=== PATIENT | male | born 1940 | race Caucasian/White ===

== ENCOUNTER 2017-07-13 11:04 | Outpatient (CLI) | payer MEDICARE, OTHER ==
[2017-07-13 11:51] LABS: BASOPHILS # (AUTO) 0.1 10^3/uL (0.0-0.1); BASOPHILS % (AUTO) 1.2 %; EOSINOPHILS # (AUTO) 0.1 10^3/uL (0.0-0.7); EOSINOPHILS % (AUTO) 1.2 %; HGB - HEMOGLOBIN 13.7 g/dL (14.0-18.0); LYMPHOCYTES # (AUTO) 1.5 10^3/uL (1.5-3.5); LYMPHOCYTES % (AUTO) 14.7 %; MEAN CORPUSCULAR HEMOGLOBIN 31.4 pg (27.0-31.0); MEAN CORPUSCULAR HGB CONC 34.5 g/dL (32.0-36.0); MONOCYTES # (AUTO) 1.7 10^3/uL (0.0-1.0); MONOCYTES % (AUTO) 16.5 %; NEUTROPHILS % (AUTO) 66.4 %; PLT - PLATELET COUNT 183 10^3/uL (130-450); RED BLOOD COUNT 4.36 10^6/uL (4.70-6.10); RED CELL DISTRIBUTION WIDTH 12.9 % (12.0-15.0); WHITE BLOOD COUNT 10.5 x10^3/uL (4.8-10.8)
[2017-07-13 12:03] LABS: RBC MORPHOLOGY (MULTIPLE) 1+ ANISOCYTOSIS (NORMAL)
--- NOTE | 2017-07-13 12:03 | XRAY Report ---
TWO-VIEW CHEST: 07/13/2017 CLINICAL INDICATION: Fever. FINDINGS: Frontal and lateral views of the chest demonstrate a normal cardiac silhouette. The lungs are clear. No effusion or pneumothorax is present. IMPRESSION: NO EVIDENCE OF ACUTE CARDIOPULMONARY DISEASE. TD: 07/13/2017 12:02
== END 2017-07-13 11:05 | disposition home or self-care (01) ==
LOC: DI 11:04
PROVIDERS: ATTEND Internal Medicine
DX: R50.9 Fever, unspecified (principal)
CPT/HCPCS: 36415; 71046; 85025

== ENCOUNTER 2019-09-03 13:01 | Emergency (ER) | payer MEDICARE, OTHER ==
--- NOTE | 2019-09-03 13:57 | ED Physician Documentation ---
PD HPI UPPER EXT INJURY - Stated complaint Stated Complaint: L INDEX FINGER LAC - Chief complaint Chief Complaint: Laceration - History obtained from History obtained from: Patient, Family - History of Present Illness Location: Left, Finger (index) Type of injury: Laceration Where injury occurred: Home Timing - onset: Last night Timing - duration: Hours (17) Timing - details: Abrupt onset, Still present Improved by: Rest, Immobilization Worsened by: Moving, Palpating Associated symptoms: No: Weakness, Numbness, Tingling Contributing factors: No: Anticoagulated Similar symptoms before: Diagnosis (laceration) Recently seen: Not recently seen - Additonal information Additional information: 79 y/o male was using a pair of clippers yesterday and clipped the tip of the left index finger. He placed a bandaid and comes in today to get this checked out. Review of Systems Constitutional: denies: Fever Eyes: denies: Decreased vision Nose: denies: Congestion Respiratory: denies: Dyspnea, Cough GI: denies: Vomiting Skin: reports: Laceration (s) PD PAST MEDICAL HISTORY - Present Medications Home Medications: Ambulatory Orders Medication Instructions Recorded Confirmed Venlafaxine HCl [Venlafaxine HCl 37.5 mg PO DAILY 09/03/19 09/03/19 ER] - Allergies Allergies/Adverse Reactions: Allergies Allergy/AdvReac Type Severity Reaction Status Date / Time Sulfa (Sulfonamide Allergy Rash Verified 09/03/19 13:15 Antibiotics) PD ED PE NORMAL - Vitals Vital signs reviewed: Yes (hypertensive ) - General General: Alert and oriented X 3, No acute distress, Well developed/nourished - HEENT HEENT: Atraumatic, PERRL, EOMI - Respiratory Respiratory: No respiratory distress - Derm Derm: Normal color, Warm and dry, No rash - Extremities Extremities: Other (There is a laceration to the tip of the left index finger. The wound appears to have been occluded with a wet dressing and the skin over the margins of the wound is white.) - Neuro Neuro: Alert and oriented X 3, No motor deficit Eye Opening: To Pain - Psych Psych: Normal mood, Normal affect Results - Vitals Vitals: Vital Signs - 24 hr 09/03/19 13:12 Temperature 36.9 C Heart Rate 75 Respiratory 18 Rate Blood Pressure 136/75 H O2 Saturation 96 Procedures - Laceration (location) left index Length in cm: 3 Wound type: Stellate, Superficial, Clean Neurovascular status: Sensory intact, Motor intact, Vascular intact Wound Preparation: Irrigated copiously NS, Wound explored, To the base Skin layer closure: Dermabond, Steri strips Other: Patient tolerated well, No complications, Neurovascular intact, Dressing applied, Tetanus booster given Complexity: Simple PD MEDICAL DECISION MAKING - ED course Complexity details: considered differential, d/w patient, d/w family ED course: 79-year-old male presents 18 hours after laceration with a laceration that now appears to have macerated skin. This is cleansed allowed to air dry the color of the skin returns mostly to normal. This delayed closure is done with tincture benzoin Steri-Strips and Dermabond. Departure - Departure Disposition: 01 Home, Self Care Clinical Impression: Finger laceration Qualifiers: Encounter type: initial encounter Finger: index finger Damage to nail status: without damage Foreign body presence: without foreign body Laterality: left Qualified Code(s): S61.211A - Laceration without foreign body of left index finger without damage to nail, initial encounter Instructions: ED Laceration Hand, ED Laceration Ext Skin Glue Follow-Up: Your, doctor [Other]
[2019-09-03] MEDS ORDERED: TETANUS/DIPHTHERIA/PERTUSSIS 0.5 ML SYRINGE IM ONE (13:58)
[2019-09-03 15:05] VITALS: BP 138/72
== END 2019-09-03 15:03 | disposition home or self-care (01) ==
LOC: ED 13:01
DX: S61.211A Laceration without foreign body of left index finger without damage to nail, initial encounter (principal); W27.1XXA Contact with garden tool, initial encounter; Y93.H2 Activity, gardening and landscaping; Y92.007 Garden or yard of unspecified non-institutional (private) residence as the place of occurrence of the external cause; Z23 Encounter for immunization
CPT/HCPCS: 12002; 90471; 99282; 99283

== ENCOUNTER 2023-04-20 08:00 | Outpatient (CLI) | payer MEDICARE, OTHER | END 2023-04-20 08:01 | disposition home or self-care (01) | LOC: LAB.N 08:00 | PROVIDERS: ATTEND Physician Assistant Medical | DX: R05.1 Acute cough (principal) ==

== ENCOUNTER 2023-04-20 08:00 | Outpatient (CLI) | payer MEDICARE, OTHER ==
--- NOTE | 2023-04-20 11:33 | XRAY Report ---
PROCEDURE: Chest 2V INDICATIONS: ACUTE COUGH TECHNIQUE: 2 views of the chest were acquired. COMPARISON: 07/13/2017 FINDINGS: Surgical changes and devices: None. Lungs and pleura: Mild opacity left lung base. There is left hemidiaphragm eventration. This was see n previously. No new dense consolidation or pleural effusion. Mediastinum: Normal heart size Bones and chest wall: Nonacute appearing minimal thoracic vertebral body wedging. IMPRESSION: No acute radiographic abnormality. Left hemidiaphragm eventration with adjacent atelectasis or scarring again seen. Reviewed by: Jose Fitzgerald MD on 04/20/2023 11:32 AM PST Approved by: Jose Fitzgerald MD on 04/20/2023 11:32 AM PST Station ID: [id number]
== END 2023-04-20 08:15 | disposition home or self-care (01) ==
LOC: DI.N 08:00
PROVIDERS: ATTEND Physician Assistant Medical
DX: R05.1 Acute cough (principal); R91.8 Other nonspecific abnormal finding of lung field

== ENCOUNTER 2023-04-20 15:52 | Outpatient (CLI) | payer MEDICARE, OTHER ==
--- NOTE | 2023-04-20 18:18 | Ultrasound Report ---
PROCEDURE: Duplex Ext Veins Right INDICATIONS: EDEMA TECHNIQUE: Real-time imaging, as well as color and pulse Doppler interrogation, were performed of the lower extr emity deep veins from the inguinal ligament to the popliteal fossa. Attempted visualization of the ca lf veins was performed. COMPARISON: None. FINDINGS: The deep veins are normally compressible, and free of intraluminal thrombus. Color and pu lse Doppler demonstrate normal phasic intraluminal flow. There is normal augmentation response to di stal compression maneuver. There is a large Reese's cyst measuring 10.3 x 2.8 x 7.0 cm. IMPRESSION: 1. No deep venous thrombosis of the visualized lower extremity. 2. Large Reese's cyst cyst. Reviewed by: Thierry Walker MD on 04/20/2023 6:17 PM PST Approved by: Thierry Walker MD on 04/20/2023 6:17 PM PST Station ID: [id number]
== END 2023-04-20 15:53 | disposition home or self-care (01) ==
LOC: DI 15:52
PROVIDERS: ATTEND Internal Medicine
DX: R60.0 Localized edema (principal); M71.21 Synovial cyst of popliteal space [Baker], right knee; R05.1 Acute cough; R91.8 Other nonspecific abnormal finding of lung field

== ENCOUNTER 2023-06-10 09:40 | Outpatient (CLI) | payer MEDICARE, OTHER ==
[2023-06-10] MEDS ORDERED: iohexoL-300 100 ML VIAL ONE (09:52)
[2023-06-10 10:24] LABS: CREATININE 0.9 mg/dL (0.6-1.3)
[2023-06-10] MEDS: iohexoL-300 100 ML VIAL IVP ONE (10:57)
--- NOTE | 2023-06-10 11:50 | CT Report ---
PROCEDURE: Chest W INDICATIONS: CHRONIC COUGH CONTRAST: OMNI 300 100ML TECHNIQUE: After the administration of intravenous contrast, a CT scan of the chest was performed. Images were recorded and evaluated at appropriate window settings. Reformats: axial MIP of the chest, coronal and sagittal. For radiation dose reduction, the following was used: automated exposure control, adjustme nt of mA and/or kV according to patient size. COMPARISON: Chest x-rays 04/20/2023, 07/13/2017 FINDINGS: Image quality: Diagnostic. Chest wall and lower neck: No thyroid nodule which requires sonographic follow up. No axillary or sup raclavicular adenopathy by size. Lungs and pleura: No consolidation. No pleural effusions. No pneumothorax. No suspicious pulmonary n odules which require follow up. Atelectasis in the lung bases. Mediastinum: Heart size is borderline enlarged. No pericardial effusion. No large vessel abnormality. No mediastinal adenopathy by size criteria. Two-vessel coronary calcifications, severe LAD calcific ations. Bones: No aggressive osseous abnormality. Upper Abdomen: 8 mm hypoattenuating lesion in liver segment 2, too small to characterize by CT; this probably represents a small cyst in the absence of metastatic disease or malignancy history. IMPRESSION: No findings to explain the patient's chronic cough. No evidence of airways disease. Severe LAD calcifications. 8 mm hypoattenuating lesion in liver segment 2, too small to characterize by CT; this probably repres ents a small cyst in the absence of metastatic disease or malignancy history. Reviewed by: Vicente Cooper MD on 06/10/2023 11:49 AM PDT Approved by: Vicente Cooper MD on 06/10/2023 11:49 AM PDT Station ID: [id number]
== END 2023-06-10 09:41 | disposition home or self-care (01) ==
LOC: LAB 09:40
PROVIDERS: ATTEND Internal Medicine
DX: R05.3 Chronic cough (principal); R06.2 Wheezing; I25.10 Atherosclerotic heart disease of native coronary artery without angina pectoris; Z79.899 Other long term (current) drug therapy; R93.2 Abnormal findings on diagnostic imaging of liver and biliary tract
CPT/HCPCS: 36415; 71260; 82565; Q9967

== ENCOUNTER 2023-06-11 11:05 | Outpatient (CLI) | payer MEDICARE, OTHER ==
[2023-06-11] MEDS: ALBUTEROL 1 PUFF INH STA (13:15)
== END 2023-06-11 11:06 | disposition home or self-care (01) ==
LOC: RT 11:05
PROVIDERS: ATTEND Internal Medicine
DX: R05.3 Chronic cough (principal); R06.2 Wheezing
CPT/HCPCS: 94060; 94727; 94729

== ENCOUNTER 2023-11-02 07:19 | Outpatient (CLI) | payer MEDICARE, OTHER ==
[2023-11-02 07:40] LABS: BASOPHILS # (AUTO) 0.1 10^3/uL (0.0-0.1); BASOPHILS % (AUTO) 1.5 %; EOSINOPHILS # (AUTO) 0.2 10^3/uL (0.0-0.7); EOSINOPHILS % (AUTO) 4.4 %; HCT - HEMATOCRIT 42.9 % (42.0-52.0); HGB - HEMOGLOBIN 14.6 g/dL (14.0-18.0); LYMPHOCYTES # (AUTO) 1.3 10^3/uL (1.5-3.5); LYMPHOCYTES % (AUTO) 27.3 %; MEAN CORPUSCULAR HEMOGLOBIN 30.8 pg (27.0-31.0); MEAN CORPUSCULAR VOLUME 90.5 fL (80.0-94.0); MEAN PLATELET VOLUME 11.1 fL (7.4-11.4); MONOCYTES # (AUTO) 0.5 10^3/uL (0.0-1.0); MONOCYTES % (AUTO) 10.6 %; NEUTROPHILS # (AUTO) 2.6 10^3/uL (1.5-6.6); NEUTROPHILS % (AUTO) 55.6 %; PLT - PLATELET COUNT 174 10^3/uL (130-450); RED BLOOD COUNT 4.74 10^6/uL (4.70-6.10); RED CELL DISTRIBUTION WIDTH 12.5 % (12.0-15.0); WHITE BLOOD COUNT 4.7 x10^3/uL (4.8-10.8)
[2023-11-02 08:02] LABS: ALBUMIN 4.1 g/dL (3.2-5.5); ALBUMIN/GLOBULIN RATIO 1.6 (1.0-2.2); ALKALINE PHOSPHATASE 71 IU/L (42-121); ALT ALANINE AMINOTRANSFERASE 26 IU/L (10-60); AST ASPARTATE AMINOTRANSFERASE 22 IU/L (10-42); BILIRUBIN,TOTAL 0.9 mg/dL (0.2-1.0); BUN - BLOOD UREA NITROGEN 21 mg/dL (6-20); CALCIUM 9.2 mg/dL (8.5-10.3); CARBON DIOXIDE - CO2 25 mmol/L (21-32); CHLORIDE 105 mmol/L (101-111); CHOL/HDL RATIO 4.7 (<5.0); CHOLESTEROL 175 mg/dL; CREATININE 0.9 mg/dL (0.6-1.3); GFR - MDRD 81 (>89); GLUCOSE 107 mg/dL (74-104); HDL CHOLESTEROL 37 mg/dL; LDL CHOLESTEROL,CALCULATED 105 mg/dL; LDL/HDL RATIO 2.8 (<3.6); POTASSIUM 3.9 mmol/L (3.5-4.5); SODIUM 137 mmol/L (135-145); TOTAL PROTEIN 6.6 g/dL (6.4-8.9); TRIGLYCERIDES 163 mg/dL; VLDL CHOLESTEROL 33 mg/dL
[2023-11-02 09:10] LABS: THYROID STIMULATING HORMONE 3.97 uIU/mL (0.34-5.60)
[2023-11-02 09:20] LABS: PSA TOTAL 3.387 ng/mL (0.000-2.000)
[2023-11-04 11:28] LABS: ESTIMATED AVERAGE GLUCOSE 120 mg/dL (70-100); HEMOGLOBIN A1c% 5.8 % (4.27-6.07)
== END 2023-11-02 07:20 | disposition home or self-care (01) ==
LOC: LAB 07:19
PROVIDERS: ATTEND Internal Medicine
DX: Z00.00 Encounter for general adult medical examination without abnormal findings (principal); N40.0 Benign prostatic hyperplasia without lower urinary tract symptoms; R05.3 Chronic cough; I25.10 Atherosclerotic heart disease of native coronary artery without angina pectoris; M19.90 Unspecified osteoarthritis, unspecified site; Z86.16 Personal history of COVID-19; J30.2 Other seasonal allergic rhinitis; R06.2 Wheezing; B02.9 Zoster without complications; E55.9 Vitamin D deficiency, unspecified; R73.01 Impaired fasting glucose; R53.83 Other fatigue
CPT/HCPCS: 36415; 80053; 80061; 81599; 82306; 83036; 83695; 83721; 84153; 84154; 84443; 85025